=== PATIENT | female | born 1985 | race Caucasian/White ===

== ENCOUNTER 2018-01-18 13:11 | Outpatient (CLI) | payer OTHER | END 2018-01-18 13:12 | disposition home or self-care (01) | LOC: DTY/OP 13:11 | PROVIDERS: ATTEND Internal Medicine | DX: E66.9 Obesity, unspecified (principal) | CPT/HCPCS: 97802 ==

== ENCOUNTER 2019-09-10 12:48 | Outpatient (CLI) | payer BC | END 2019-09-10 12:49 | disposition home or self-care (01) | LOC: DTY/OP 12:48 | PROVIDERS: ATTEND Surgery | DX: E66.01 Morbid (severe) obesity due to excess calories (principal) | CPT/HCPCS: 97802 ==

== ENCOUNTER 2019-11-01 07:00 | Inpatient (IN) | payer BC ==
[2019-11-01 13:13] VITALS: BMI 40.1
[2019-11-05] MEDS ORDERED: Heparin 5,000 UNITS/ML VIAL ONE (07:37)
[2019-11-05] MEDS ORDERED: Fentanyl 250 MCG/5 ML VIAL ONE (08:27)
[2019-11-05] MEDS ORDERED: Midazolam HCl 2 mg/2 ml Vial ONE ×3 (08:27→12:32)
[2019-11-05] MEDS ORDERED: Lidocaine 1% w/Epinephrine 1:100K 20 ML VIAL ONE (08:28)
[2019-11-05] MEDS ORDERED: Bupivacaine 0.25% HCL 30 ML VIAL ONE (08:28)
[2019-11-05] MEDS ORDERED: Dexamethasone 20 MG/5 ML VIAL ONE (08:56)
[2019-11-05] MEDS ORDERED: Ketorolac Tromethamine 30 MG/ML VIAL ONE (08:56)
[2019-11-05] MEDS ORDERED: Glycopyrrolate 0.2 MG/ML 5 ML SYRINGE ONE (08:56)
[2019-11-05] MEDS ORDERED: diphenhydrAMINE 50 MG/ML VIAL ONE (08:56)
[2019-11-05] MEDS ORDERED: Ondansetron PF 4 MG/2 ML Vial ONE (08:56)
[2019-11-05] MEDS ORDERED: Rocuronium Bromide 10 MG/ML (10ML VIAL) ONE (08:56)
[2019-11-05] MEDS ORDERED: Lidocaine 1% PF 5 ML VIAL ONE (08:56)
[2019-11-05] MEDS ORDERED: PROPOFOL 200 MG/20 ML VIAL ONE (08:56)
[2019-11-05] MEDS ORDERED: Meperidine HCl/PF 25 MG/ML VIAL SLOW IVP PRN (10:04)
[2019-11-05] MEDS ORDERED: Ondansetron HCl/PF 4 MG/2 ML Vial IVP PRN (10:04)
[2019-11-05] MEDS ORDERED: Promethazine HCl 25 MG/ML VIAL IM PRN ×3 (10:04→12:43)
[2019-11-05] MEDS ORDERED: HYDROmorphone 2 MG/ML VIAL SLOW IVP PRN (10:04)
[2019-11-05] MEDS ORDERED: Promethazine HCl 25 MG/ML VIAL SLOW IVP PRN (10:04)
[2019-11-05] MEDS ORDERED: Fentanyl 100 MCG/2 ML VIAL ONE ×2 (10:20→10:32)
[2019-11-05] MEDS ORDERED: diphenhydrAMINE 25 MG CAP PO PRN (10:25)
[2019-11-05] MEDS ORDERED: diphenhydrAMINE 50 MG/ML VIAL IM/IV PRN (10:25)
[2019-11-05] MEDS ORDERED: Morphine Sulfate 100 MG in Dextrose 5% in Water 98 ML IV SCH (10:25)
[2019-11-05] MEDS ORDERED: Naloxone HCl 0.4 mg/ml Vial IV PRN (10:25)
[2019-11-05] MEDS ORDERED: Ondansetron PF 4 MG/2 ML Vial IVP PRN ×2 (10:25→12:43)
--- NOTE | 2019-11-05 10:48 | OP ---
DATE OF PROCEDURE: 11/05/2019 PREOPERATIVE DIAGNOSIS: Morbid obesity, body mass index of 40. POSTOPERATIVE DIAGNOSIS: Morbid obesity, body mass index of 40. PROCEDURES PERFORMED: 1. Laparoscopic sleeve gastrectomy with [place] staple line reinforcements and 38-Faroese bougie. 2. Esophagogastroduodenoscopy. ANESTHESIA: General. ESTIMATED BLOOD LOSS: Minimal. COMPLICATIONS: None. SPECIMEN: Stomach. FINDINGS: Normal postoperative EGD. TECHNIQUE: The patient was taken to the operating room and laid supine on the operating room table, after general anesthetic was obtained, her arms and legs were double strapped to bariatric table. OG tube was used to decompress the stomach. The abdomen was prepped and draped in a sterile fashion. Left subcostal 5-mm Optiview trocar placed in usual fashion. High-flow pneumoperitoneum was obtained. Left and right abdominal 12 mm ports as well as a right subcostal 5-mm port were placed under direct visualization. A 5-mm incision was made at the xiphoid, and the Maximo was used to raise the liver off the GE junction. Short gastrics were taken down to midbody of stomach to left robb of diaphragm. Left robb, posterior fundus, angle of His were completely dissected. Short gastrics were taken down to a distance of 6 cm proximal to the pylorus. A 38-Faroese bougie was brought in and its tip left in the antrum of the stomach. All other tubes in the GI tract were removed. 60 mm [place] staple line reinforcements used to form the sleeve, the first was a green load, fired up at a distance of 6 cm proximal to the pylorus, angled up towards the incisura. Multiple loads were then fired along the bougie. Stomach was completely transected at the angle of His. Stomach was removed from left abdominal incision. This fascial defect was closed using GraNee needle and 0 Vicryl tie. EGD scope was passed through the esophagus, stomach to the level of duodenum without obstruction. There was no stricture at the incisura. No bleeding along the staple line. EGD scope was used to decompress the stomach, was pulled and removed. All port sites were infiltrated using local anesthetic. All ports were removed under camera visualization. Pneumoperitoneum was let down. The Vicryl was used to close the fascial defect below from the left abdominal incision. All incisions were irrigated and closed using 4-0 Monocryl and Dermabond. The patient was sent to Recovery in stable condition. All instrument counts, needle counts, and lap counts were correct. Job ID: [id number]
[2019-11-05] MEDS ORDERED: Morphine 4 MG/ML VIAL ONE (11:02)
[2019-11-05] MEDS ORDERED: Morphine 2 MG/ML VIAL ONE (11:11)
[2019-11-05] MEDS ORDERED: Hydrocodone-Acetamin 15 ML UDCUP PO PRN (12:43)
[2019-11-05] MEDS ORDERED: Dextrose 50% Abboject 50 ML SYRINGE SLOW IVP PRN (12:43)
[2019-11-05] MEDS ORDERED: Dextrose 5% in Water 1,000 ML IV PRN (12:43)
[2019-11-05] MEDS ORDERED: hydrALAZINE 20 MG/ML VIAL SLOW IVP PRN (12:43)
[2019-11-05] MEDS ORDERED: diphenhydrAMINE 50 MG/ML VIAL IVP PRN (12:43)
[2019-11-05] MEDS: D5 1/2 NS w/20 mEq KCL 1,000 ML IV SCH ×2 (19:18→20:22)
[2019-11-05] MEDS: busPIRone HCl 10 MG TAB PO SCH (20:18)
[2019-11-05] MEDS ORDERED: clonazePAM 0.5 MG TAB PO SCH (21:00)
[2019-11-05] MEDS ORDERED: Enoxaparin Sodium 40 MG/0.4 ML SYRINGE SC SCH (21:00)
[2019-11-05] MEDS ORDERED: DULoxetine 60 MG CAP PO SCH (21:00)
[2019-11-06] MEDS: D5 1/2 NS w/20 mEq KCL 1,000 ML IV SCH (03:45)
[2019-11-06 07:53] LABS: Anion Gap 12 mmol/L (10-20); BUN (Urea Nitrogen) 7 mg/dL (7.0-18.7); Calc. Creatinine Clearance 177 mL/min (70-130); Calcium 8.8 mg/dL (7.8-10.44); Carbon Dioxide 26 mmol/L (22-29); Chloride 105 mmol/L (98-107); Estimated GFR-MDRD 87; Glucose 95 mg/dL (70-105); Potassium 3.8 mmol/L (3.5-5.1); Sodium 139 mmol/L (136-145)
[2019-11-06] MEDS: busPIRone HCl 10 MG TAB PO SCH (08:36)
[2019-11-06] MEDS ORDERED: Bupropion 100 MG SR TAB PO SCH (09:00)
[2019-11-06] MEDS ORDERED: Pantoprazole 40 MG VIAL IVP SCH (09:00)
[2019-11-06 09:40] LABS: Hemoglobin 14.2 g/dL (12.0-16.0); Mean Corpuscular HGB CONC 32.4 g/dL (32.0-36.0); Mean Corpuscular Hemoglobin 28.9 pg (27.0-31.0); Mean Platelet Volume 7.9 fL (7.4-10.4); Platelet Count 378 thou/uL (130-400); RBC Distribution Width 12.5 % (11.5-14.5); Red Blood Cell (RBC) Count 4.94 mill/uL (4.20-5.40); White Blood Cell (WBC) Count 11.6 thou/uL (4.8-10.8)
[2019-11-06 09:41] LABS: #Lymphocytes 2.8 thou/uL (1.20-3.40); #Monocytes 0.7 thou/uL (0.11-0.59); %Basophils 0.2 % (0.0-1.0); %Eosinophils 0.4 % (0.0-10.0); %Lymphocytes 24.1 % (21.0-51.0); %Monocytes 6.1 % (0.0-10.0); %Neutrophils 69.3 % (42.0-75.0); Manual Diff?? NO
[2019-11-06] MEDS ORDERED: traMADol HCl 50 MG TAB PO PRN (10:53)
[2019-11-06 11:40] VITALS: BP 128/89; TEMP 97.6
== END 2019-11-06 12:50 | disposition home or self-care (01) | DRG 621 ==
LOC: SURG A 11-05 06:25
PROVIDERS: ADMIT Surgery; ATTEND Surgery
PROC: 0DB64Z3 Excision of Stomach, Percutaneous Endoscopic Approach, Vertical (ICD-10-PCS; principal; 2019-11-05)
PROC: 0DJ08ZZ Inspection of Upper Intestinal Tract, Via Natural or Artificial Opening Endoscopic (ICD-10-PCS; 2019-11-05)
DX: E66.01 Morbid (severe) obesity due to excess calories (principal); Z68.41 Body mass index [BMI] 40.0-44.9, adult; Z88.6 Allergy status to analgesic agent
CPT/HCPCS: 80048; 85025; 88307; 88312; C9113; J0690; J1100; J1200; J1644; J1650; J1885; J2250; J2270; J2405; J2704; J3010; J3480; S0020

== ENCOUNTER 2020-03-18 13:16 | Day surgery (SDC) | payer BC ==
[2020-03-18] MEDS ORDERED: Ondansetron PF 4 MG/2 ML Vial IVP PRN (13:42)
[2020-03-18] MEDS ORDERED: Sodium Chloride 0.9% 1,000 ML IV SCH (13:45)
[2020-03-18] MEDS ORDERED: Multivitamins, Adult 10 ML, Thiamine HCl 100 MG in Sodium Chloride 0.9% 1,000 ML IV SCH (14:00)
[2020-03-18] MEDS ORDERED: Sodium Chloride 0.9% 20 ML ONE (14:15)
== END 2020-03-18 16:04 | disposition home or self-care (01) ==
LOC: ONC/OP 13:16
PROVIDERS: ATTEND Surgery
DX: E86.0 Dehydration (principal); Z88.5 Allergy status to narcotic agent
CPT/HCPCS: 96361; 96365; 96375; J2405; J3411; J7050

== ENCOUNTER 2020-03-19 07:25 | Day surgery (SDC) | payer BC ==
[2020-03-19] MEDS ORDERED: cefOXitin Sodium/Dextrose 2 GM/50 ML BAG ONE (08:08)
[2020-03-19] MEDS ORDERED: Midazolam HCl 2 mg/2 ml Vial ONE ×2 (08:41→08:55)
[2020-03-19] MEDS ORDERED: Bupivacaine 0.25% HCL 30 ML VIAL ONE (08:44)
[2020-03-19] MEDS ORDERED: XYLOCAINE 2%-EPI 1:100,000 20 ML VIAL ONE (08:44)
[2020-03-19] MEDS ORDERED: Lidocaine 1% PF 5 ML VIAL ONE (08:51)
[2020-03-19] MEDS ORDERED: PROPOFOL 200 MG/20 ML VIAL ONE (08:51)
[2020-03-19] MEDS ORDERED: Dexamethasone 20 MG/5 ML VIAL ONE (08:51)
[2020-03-19] MEDS ORDERED: Rocuronium Bromide 10 MG/ML (10ML VIAL) ONE (08:51)
[2020-03-19] MEDS ORDERED: Ondansetron PF 4 MG/2 ML Vial ONE (08:51)
[2020-03-19] MEDS ORDERED: Ketorolac Tromethamine 30 MG/ML VIAL ONE (08:51)
[2020-03-19] MEDS ORDERED: Fentanyl 100 MCG/2 ML VIAL ONE ×2 (08:55→10:39)
[2020-03-19] MEDS ORDERED: HYDROmorphone 0.5 MG/0.5 ML SYRINGE ONE (08:56)
[2020-03-19] MEDS ORDERED: Dexmedetomidine 200 MCG/2 ML VIAL ONE (08:56)
[2020-03-19] MEDS ORDERED: Meperidine HCl/PF 25 MG/ML VIAL ONE (10:34)
[2020-03-19] MEDS ORDERED: traMADol HCl 50 MG TAB ONE ×2 (11:10→11:13)
== END 2020-03-19 12:10 | disposition home or self-care (01) ==
LOC: SDC 07:25
PROVIDERS: ATTEND Surgery
PROC: 0FT44ZZ Resection of Gallbladder, Percutaneous Endoscopic Approach (ICD-10-PCS; principal; 2020-03-19)
DX: K80.12 Calculus of gallbladder with acute and chronic cholecystitis without obstruction (principal); F32.9 Major depressive disorder, single episode, unspecified; Z88.5 Allergy status to narcotic agent
CPT/HCPCS: 88304; J0694; J1100; J1170; J1885; J2175; J2250; J2405; J2704; J3010; S0020

== ENCOUNTER 2023-07-14 07:35 | Outpatient (CLI) | payer BC | END 2023-07-14 07:36 | disposition home or self-care (01) | LOC: BICULT 07:35 | PROVIDERS: ATTEND Student in an Organized Health Care Education/Training Program | DX: N94.10 Unspecified dyspareunia (principal); N93.0 Postcoital and contact bleeding; Z97.5 Presence of (intrauterine) contraceptive device | CPT/HCPCS: 76856 ==

== ENCOUNTER 2025-01-03 08:32 | Outpatient (CLI) | payer BC ==
[2025-01-03 09:43] LABS: #Basophils 0.03 10x3/uL (0.0-0.2); #Eosinophils 0.09 10x3/uL (0.0-0.7); #Monocytes 0.35 10x3/uL (0.11-0.59); #Neutrophils 3.52 10x3/uL (1.40-6.50); %Basophils 0.5 % (0.0-1.0); %Eosinophils 1.5 % (0.0-10.0); %Lymphocytes 32.1 % (21.0-51.0); %Monocytes 5.9 % (0.0-10.0); %Neutrophils 59.8 % (42.0-75.0); Hematocrit 40.7 % (36.0-47.0); Hemoglobin 13.3 g/dL (12.0-16.0); Mean Corpuscular Hemoglobin 29.4 pg (27.0-31.0); Mean Corpuscular Volume 90.0 fL (78.0-98.0); Platelet Count 337 10x3/uL (130-400); Red Blood Cell (RBC) Count 4.52 mill/uL (4.20-5.40); White Blood Cell (WBC) Count 5.89 10x3/uL (4.8-10.8)
[2025-01-03 09:54] LABS: BHCG - Serum Negative (NEGATIVE); Pregs Control Background? CLEAR/WHITE (CLR/WHITE); Pregs Control Bar Appear? YES (CONTROL BAR)
[2025-01-03 09:56] LABS: Anion Gap 13 mmol/L (10-20); BUN (Urea Nitrogen) 15 mg/dL (7.0-18.7); Calc. Creatinine Clearance 0 mL/min (70-130); Calcium 9.1 mg/dL (7.8-10.44); Carbon Dioxide 25 mmol/L (22-29); Chloride 108 mmol/L (98-107); Glucose 78 mg/dL (70-105); Potassium 4.7 mmol/L (3.5-5.1); Sodium 141 mmol/L (136-145)
== END 2025-01-03 08:33 | disposition home or self-care (01) ==
LOC: LABBT 08:32
PROVIDERS: ATTEND Orthopaedic Surgery
DX: Z01.812 Encounter for preprocedural laboratory examination (principal); S43.431A Superior glenoid labrum lesion of right shoulder, initial encounter; M75.101 Unspecified rotator cuff tear or rupture of right shoulder, not specified as traumatic
CPT/HCPCS: 80048; 84703; 85025

== ENCOUNTER 2025-01-11 15:13 | Day surgery (SDC) | payer BC ==
[2025-01-11] MEDS ORDERED: Ropivacaine 2% HCl/PF (20 MG/10 ML VIAL) ONE (16:00)
== END 2025-01-11 16:42 | disposition home or self-care (01) ==
LOC: SDC 15:13
PROVIDERS: ATTEND Anesthesiology
PROC: 3E0T3BZ Introduction of Anesthetic Agent into Peripheral Nerves and Plexi, Percutaneous Approach (ICD-10-PCS; principal; 2025-01-11)
DX: M25.511 Pain in right shoulder (principal); Z98.84 Bariatric surgery status; Z90.49 Acquired absence of other specified parts of digestive tract; Z88.5 Allergy status to narcotic agent
CPT/HCPCS: J2795